=== PATIENT | female | born 1985 | race Caucasian/White ===

== ENCOUNTER 2017-05-18 13:36 | Inpatient (IN) | payer BC, OTHER ==
[~2017-05-18] VITALS: Ht 157.4 cm; Wt 72.7 kg
[2017-05-18] VITALS (7 sets, daily range): BP systolic 107–138; BP diastolic 70–79
[~2017-05-18 13:36] MED LIST: CYCLOBENZAPRINE10 MG PO; IBU800 MG PO
[2017-05-18 14:40] LABS: HEMATOCRIT 40.9 % (37.0-47.0); HEMOGLOBIN 13.8 g/dl (12.0-16.0); MEAN CELL VOLUME 93.6 fl (81.0-99.0); MEAN CORPUSCULAR HGB 31.6 pg (27.0-31.0); MEAN CORPUSCULAR HGB CONC 33.7 g/dl (33.0-37.0); MEAN PLATELET VOLUME 9.1 fl (9.6-12.3); PLATELET COUNT AUTOMATED 250 10*3/uL (130-400); RED BLOOD COUNT 4.37 10*6/uL (4.10-5.10)
--- NOTE | 2017-05-18 14:40 | NUR ---
IN BED DRINKING WATER VISITING WITH SISTER.
[2017-05-18 14:57] LABS: ALBUMIN 3.5 gm/dl (3.1-4.5); ALKALINE PHOSPHATASE 86 U/L (45-117); BUN 10 mg/dl (7-24); CHLORIDE 102 mmol/L (98-107); CREATININE 0.84 mg/dL (0.55-1.02); POTASSIUM 3.5 mmol/L (3.5-5.1); SGOT/AST 15 IU/L (3-35); SGPT/ALT 15 U/L (12-78); SODIUM 136 mmol/L (136-145); TOTAL PROTEIN 7.9 gm/dL (6.4-8.2)
[2017-05-18 14:58] LABS: TROPONIN I < 0.015 ng/ml (<0.045)
[2017-05-18 15:05] LABS: BASOPHILS 1 % (0-1); TOTAL CELLS COUNTED 100 #CELLS
[2017-05-18 15:06] LABS: PLATELET SUFFICIENCY NORMAL (NORMAL)
[2017-05-18 16:16] LABS: BILIRUBIN NEGATIVE (NEGATIVE); BLOOD TRACE-LYSED (NEGATIVE); CLARITY CLEAR (CLEAR); COLOR YELLOW (YELLOW); GLUCOSE NEGATIVE (NEGATIVE); KETONE 2+ (NEGATIVE); LEUKO ESTERASE NEGATIVE (NEGATIVE); NITRITE NEGATIVE (NEGATIVE); PH 7.5 (5.0-9.0); UROBILINOGEN 0.2 E.U./dl (0.2-1.0)
[2017-05-18 16:28] LABS: BACTERIA 2+
[2017-05-18] MEDS ORDERED: PROZAC20 MG PO (18:37)
[2017-05-18] MEDS ORDERED: ATIVAN0.5 MG PO (18:38)
[2017-05-18] MEDS ORDERED: CRYSELLE-28 TA1 EACH PO (18:43)
--- NOTE | 2017-05-18 18:44 | NUR ---
DR MENDEZ NOTIFIED THAT MEDS WERE VERIFIED WITH PHARMACY. NOTIFIED THAT PT HAD CONTROL HERE AND IT COULD BE SENT TO PHARMACY FOR USE WHILE INPATIENT.
--- NOTE | 2017-05-18 19:55 | NUR ---
SPOKE TO ABOUT PATIENT'S CONTROL FROM HOME. PER PHARMACY, MED NEEDS TO BE ORDERED A NON-FORMULARY MEDICATION. STATES HE WILL ORDER THIS MEDICATION.
--- NOTE | 2017-05-18 20:06 | NUR ---
PATIENT RETURNED TO FLOOR FROM [facility]
--- NOTE | 2017-05-18 20:06 | NUR ---
HOME MED SENT TO PHARMACY AT THIS TIME.
--- NOTE | 2017-05-18 20:22 | NUR ---
PT MEDICATED WITH PO NORCO PER PRN ORDER FOR C/O THROAT PAIN 01/24. WILL MONITOR EFFECTIVENESS. CALL LIGHT LEFT IN REACH.
--- NOTE | 2017-05-18 21:18 | NUR ---
EARLIER MEDICATION EFFECTIVE PER PT. WILL CONTINUE TO MONITOR. CALL LIGHT LEFT IN REACH.
--- NOTE | 2017-05-18 21:18 | NUR ---
PT MEDICATED WITH PO NORCO PER PRN ORDER FOR C/O THROAT PAIN 01/24. WILL MONITOR EFFECTIVENESS. CALL LIGHT LEFT IN REACH.
[2017-05-19] VITALS: BP 103/59
--- NOTE | 2017-05-19 03:59 | NUR ---
PATIENT MEDICATED WITH PO NORCO PER PRN ORDER FOR C/O THROAT PAIN 01/15O. WILL MONITOR. CALL LIGHT LEFT IN REACH.
[2017-05-19 04:00] VITALS: BP 104/67
[2017-05-19 06:54] LABS: BASO % 0.1 % (0.0-1.0); LYMPH # 1.1 10*3/uL (1.3-4.4); LYMPH % 5.3 % (27.0-41.0); MEAN CELL VOLUME 95.1 fl (81.0-99.0); MEAN CORPUSCULAR HGB 32.3 pg (27.0-31.0); MEAN CORPUSCULAR HGB CONC 33.9 g/dl (33.0-37.0); MEAN PLATELET VOLUME 8.9 fl (9.6-12.3); MONO # 1.2 10*3/uL (0.1-1.0); MONO % 5.9 % (3.0-9.0); NEUT # 18.1 10*3/uL (2.3-7.9); NEUT % 87.6 % (47.0-73.0); PLATELET COUNT AUTOMATED 191 10*3/uL (130-400); RED BLOOD COUNT 3.47 10*6/uL (4.10-5.10); RED CELL DISTRI WIDTH 12.3 % (0-14.5); WHITE BLOOD COUNT 20.7 10*3/uL (4.8-10.8)
[2017-05-19 07:03] LABS: HEMOGLOBIN 11.2 g/dl (12.0-16.0)
[2017-05-19 07:32] LABS: ALBUMIN 2.5 gm/dl (3.1-4.5); BUN 5 mg/dl (7-24); CHLORIDE 112 mmol/L (98-107); CHOLESTEROL 145 mg/dL (<200); CREATININE 0.63 mg/dL (0.55-1.02); HDL CHOLESTEROL 59 mg/dl (40-60); LDL CHOLESTEROL 78 mg/dL (9-159); MAGNESIUM 1.9 mg/dL (1.5-2.1); PHOSPHOROUS 2.1 mg/dL (2.5-4.9); POTASSIUM 3.5 mmol/L (3.5-5.1); SGOT/AST 6 IU/L (3-35); SGPT/ALT 12 U/L (12-78); SODIUM 142 mmol/L (136-145); TOTAL PROTEIN 6.2 gm/dL (6.4-8.2); TRIGLYCERIDES 41 mg/dl (<150); VLDL CHOLESTEROL 8 mg/dL (6-40)
[2017-05-19 07:39] LABS: ALKALINE PHOSPHATASE 62 U/L (45-117); FREE T4 1.15 ng/dl (0.76-1.46)
[2017-05-19 07:40] LABS: ACT PARTIAL THROMBO TIME 24.7 SECONDS (20.8-31.5); INTERNATIONAL NORM RATIO 1.1 (2.0-3.5)
[2017-05-19 08:00] VITALS: BP 94/56
--- NOTE | 2017-05-19 08:02 | NUR ---
PT REQUESTED AND GIVEN NORCO FOR C/O THROAT PAIN. PT RATES PAIN 6/10. WILL MONITOR
--- NOTE | 2017-05-19 09:00 | NUR ---
Transportation Security Screener in to talk to patient. Patient states lives at home with children and her dad. There are few steps in the home. Physician: palomo becker from [facility]: matteo winn Home health services: none Patient's level of ADLs: INDEPENDENT Patient has working utilities: all working DME: none Follow-up physician's appointment after d/c: will be made by hospitalist nurse director upon discharge Does patient want to access PORTAL?: no Discharge plan discussed with patient, patient lives at home with her dad and her three children, she is independent in adls and ambulation, works, drives, denies any home needs. ZAID JACKSON
--- NOTE | 2017-05-19 10:00 | NUR ---
PT STATES THAT [facility] HELPED. WILL MONITOR
[2017-05-19 12:00] VITALS: BP 99/56
--- NOTE | 2017-05-19 13:15 | NUR ---
PT REQUESTED AND GIVEN NORCO FOR. C/O THROAT PAIN. WILL MONITOR
--- NOTE | 2017-05-19 15:18 | NUR ---
[facility], WILL MONITOR
[2017-05-19 16:00] VITALS: BP 115/67
[2017-05-19 20:00] VITALS: BP 107/62
--- NOTE | 2017-05-19 20:45 | NUR ---
PATIENT REQUESTED AND RECEIVED PO NORCO PER PRN ORDER FOR C/O THROAT PAIN 5/10 (L SIDE > R SIDE). WILL MONITOR EFFECTIVENESS. CALL LIGHT IN REACH.
--- NOTE | 2017-05-19 21:26 | NUR ---
PATIENT STATES EARLIER MEDICATION WAS EFFECTIVE. WILL MONITOR.
[2017-05-20] VITALS: BP 110/64
--- NOTE | 2017-05-20 04:57 | NUR ---
PATIENT REQUESTED AND RECEIVED PO NORCO PER PRN ORDER FOR C/O THROAT PAIN 12/24. WILL MONITOR. CALL LIGHT LEFT IN REACH.
--- NOTE | 2017-05-20 05:06 | NUR ---
EARLIER MEDICATION EFFECTIVE PER PT. WILL CONTINUE TO MONITOR.
[2017-05-20 08:00] VITALS: BP 102/62
--- NOTE | 2017-05-20 09:00 | NUR ---
case management visits with patient, patient denies any home needs
[2017-05-20 09:11] LABS: HEMATOCRIT 35.3 % (37.0-47.0); HEMOGLOBIN 11.6 g/dl (12.0-16.0); MEAN CELL VOLUME 95.9 fl (81.0-99.0); MEAN CORPUSCULAR HGB 31.5 pg (27.0-31.0); MEAN CORPUSCULAR HGB CONC 32.9 g/dl (33.0-37.0); MEAN PLATELET VOLUME 9.6 fl (9.6-12.3); PLATELET COUNT AUTOMATED 221 10*3/uL (130-400); RED BLOOD COUNT 3.68 10*6/uL (4.10-5.10); RED CELL DISTRI WIDTH 12.3 % (0-14.5); WHITE BLOOD COUNT 17.4 10*3/uL (4.8-10.8)
[2017-05-20 09:28] LABS: ALBUMIN 2.9 gm/dl (3.1-4.5); ALKALINE PHOSPHATASE 67 U/L (45-117); BUN 8 mg/dl (7-24); CHLORIDE 111 mmol/L (98-107); CREATININE 0.76 mg/dL (0.55-1.02); POTASSIUM 3.7 mmol/L (3.5-5.1); SGOT/AST 10 IU/L (3-35); SGPT/ALT 13 U/L (12-78); SODIUM 142 mmol/L (136-145); TOTAL PROTEIN 6.9 gm/dL (6.4-8.2)
[2017-05-20 09:37] LABS: PLATELET SUFFICIENCY NORMAL (NORMAL); TOTAL CELLS COUNTED 100 #CELLS
[2017-05-20] MEDS ORDERED: PREDNISONE10 MG PO (11:13)
[2017-05-20] MEDS ORDERED: AUGMENTIN 875875 MG PO (11:13)
[2017-05-20] MEDS ORDERED: B12,B-12,B 12500 MC1 PO (11:13)
[2017-05-20 12:00] VITALS: BP 114/74
--- NOTE | 2017-05-20 14:10 | NUR ---
Discharge instructions reviewed with patient/family. Patient receptive and verbalizes understanding. Follow-up care arranged. Written instructions given to patient/family.[place] REMOVED AND TELEMETRY ACCOUNTED FOR. COCO JEONG
== END 2017-05-20 14:23 | disposition home or self-care (01) | DRG 871 ==
LOC: ED 13:36 → 5E 17:45 → EDHOLD 17:45 → 5E 18:04
PROVIDERS: Hospitalist; Physician Assistant; ADMIT Internal Medicine
DX: A41.9 Sepsis, unspecified organism (principal); E43 Unspecified severe protein-calorie malnutrition; F33.9 Major depressive disorder, recurrent, unspecified; J03.80 Acute tonsillitis due to other specified organisms; R65.20 Severe sepsis without septic shock; B96.89 Other specified bacterial agents as the cause of diseases classified elsewhere; F41.1 Generalized anxiety disorder; E83.39 Other disorders of phosphorus metabolism; E53.8 Deficiency of other specified B group vitamins; Z79.899 Other long term (current) drug therapy; Z88.8 Allergy status to other drugs, medicaments and biological substances; Z98.891 History of uterine scar from previous surgery; Z83.49 Family history of other endocrine, nutritional and metabolic diseases; Z68.31 Body mass index [BMI] 31.0-31.9, adult